=== PATIENT | male | born 1970 | race Caucasian/White ===

== ENCOUNTER 2016-11-28 03:05 | Inpatient (IN) | payer OTHER ==
[2016-11-28] VITALS (15 sets, daily range): BP systolic 86–128; BP diastolic 49–73
[~2016-11-28] VITALS: Ht 175.3 cm; Wt 66.9 kg
[~2016-11-28 03:05] MED LIST: LANTUS 10100 UNITS/ SC; LO-DOSE ASPIRIN81 M1 PO; NAPROSYN250 MG PO; NOVOLOG 10100 UNITS/ SC; PAXIL20 MG PO; XANAX1 MG PO
[2016-11-28 03:37] LABS: ADD MIUA? NO; BILIRUBIN NEGATIVE; BLOOD NEGATIVE; COLOR YELLOW ((YELLOW)); GLUCOSE (STRIP) >=1000; KETONES >=80; LEUKOCYTES NEGATIVE; NITRITE NEGATIVE; PROTEIN (STRIP) NEGATIVE; SPECIFIC GRAVITY 1.032 (1.000-1.030); UCUL ADDED? NO; UROBILINOGEN 0.2 MG/DL (0.2-1.0)
[2016-11-28 05:21] LABS: CARBON DIOXIDE (BICARBONATE) 16.4 MEQ/L (20-31)
[2016-11-28 05:23] LABS: CHLORIDE 97 mEq/L (99-109); POTASSIUM 4.8 mEq/L (3.7-5.4); SODIUM 133 mEq/L (136-147)
[2016-11-28 05:27] LABS: ANION GAP 24 MEQ/L (2-14)
[2016-11-28 05:28] LABS: TOTAL BILIRUBIN 0.4 mg/dL (0.0-1.0)
[2016-11-28 05:29] LABS: ALKALINE PHOSPHATASE 136 IU/L (3-129); GFR ESTIMATE (CALCULATED) > 59 mL/min/
[2016-11-28 05:30] LABS: UREA NITROGEN (BUN) 29 mg/dL (9-23)
[2016-11-28 05:33] LABS: LIPASE 22 U/L (1.0-51.0)
[2016-11-28 05:47] LABS: GLUCOSE 761 mg/dL (70-99)
[2016-11-28 05:49] LABS: HEMATOCRIT 38.6 % (38.0-50.0); MCH 31.3 PG (29.0-34.0); MCHC 33.2 G/DL (30.0-36.0); MCV 94.4 FL (86-99); MEAN PLAT.VOLUME 11.8 uM^3 (9.0-12.4); PLATELET COUNT 293 K/uL (156-360); RBC DIS.WIDTH-CV 14.5 % (11.8-14.6); RBC DIS.WIDTH-SD 47.6 % (39-53); RED BLOOD COUNT 4.09 M/uL (4.00-5.50); WHITE BLOOD COUNT 11.2 K/uL (4.1-10.2)
[2016-11-28 07:10] LABS: Estimated Average Glucose 243 mg/dL (70-123); HEMOGLOBIN A1c (GLYCOHEMOGLOB) 10.1 % HGB (Below 5.7)
[2016-11-28 08:38] LABS: POINT-OF-CARE METER ID UU13113731
[2016-11-28 09:00] LABS: METH RESISTANT S AUREUS PCR NEGATIVE (NEGATIVE)
[2016-11-28 09:03] LABS: PROBE CHECK PASS; SPECIMEN PROCESSING CONTROL PASS
[2016-11-28 09:18] LABS: POINT-OF-CARE METER ID UU13113731
[2016-11-28 09:57] LABS: ANION GAP 23 MEQ/L (2-14); CHLORIDE 104 MEQ/L (99-109); GFR ESTIMATE (CALCULATED) > 59 mL/min/; POTASSIUM 4.2 MEQ/L (3.7-5.4); SAMPLE HEMOLYSIS CHECK 0; SAMPLE ICTERIC CHECK 0; SAMPLE LIPEMIA CHECK 0; SODIUM 139 MEQ/L (136-147); UREA NITROGEN (BUN) 24 mg/dL (9-23)
[2016-11-28 10:05] LABS: GLUCOSE 354 mg/dL (70-99)
[2016-11-28 10:37] LABS: POINT-OF-CARE METER ID UU13113731
[2016-11-28 11:23] LABS: POINT-OF-CARE METER ID UU13113731
[2016-11-28 12:42] LABS: ANION GAP 14 MEQ/L (2-14); CHLORIDE 104 MEQ/L (99-109); POTASSIUM 4.3 MEQ/L (3.7-5.4); SAMPLE HEMOLYSIS CHECK 0; SAMPLE ICTERIC CHECK 0; SAMPLE LIPEMIA CHECK 1; SODIUM 136 MEQ/L (136-147)
[2016-11-28 12:47] LABS: GFR ESTIMATE (CALCULATED) > 59 mL/min/; GLUCOSE 249 mg/dL (70-99); UREA NITROGEN (BUN) 17 mg/dL (9-23)
[2016-11-28 12:53] LABS: POINT-OF-CARE METER ID UU13113731; POINT-OF-CARE USER ID 606021424
[2016-11-28 14:06] LABS: POINT-OF-CARE METER ID UU13113731; POINT-OF-CARE USER ID 606021424
[2016-11-28 14:45] LABS: POINT-OF-CARE METER ID UU13113731
[2016-11-28 15:57] LABS: POINT-OF-CARE METER ID UU13113731
[2016-11-28 16:14] LABS: ANION GAP 10 MEQ/L (2-14); CHLORIDE 107 MEQ/L (99-109); POTASSIUM 4.4 MEQ/L (3.7-5.4); SAMPLE HEMOLYSIS CHECK 2; SAMPLE ICTERIC CHECK 0; SAMPLE LIPEMIA CHECK 0; SODIUM 137 MEQ/L (136-147)
[2016-11-28 16:20] LABS: GFR ESTIMATE (CALCULATED) > 59 mL/min/; GLUCOSE 186 mg/dL (70-99); UREA NITROGEN (BUN) 12 mg/dL (9-23)
[2016-11-28 17:03] LABS: POINT-OF-CARE METER ID UU13113731
[2016-11-28 21:09] LABS: ANION GAP 8 MEQ/L (2-14); CHLORIDE 104 MEQ/L (99-109); GFR ESTIMATE (CALCULATED) > 59 mL/min/; GLUCOSE 333 mg/dL (70-99); POTASSIUM 4.6 MEQ/L (3.7-5.4); SAMPLE HEMOLYSIS CHECK 2; SAMPLE ICTERIC CHECK 0; SAMPLE LIPEMIA CHECK 0; SODIUM 134 MEQ/L (136-147); UREA NITROGEN (BUN) 14 mg/dL (9-23)
[2016-11-29] VITALS (10 sets, daily range): BP systolic 0–134; BP diastolic 0–69
[2016-11-29 00:43] LABS: POINT-OF-CARE METER ID UU13113731
[2016-11-29 03:03] LABS: POINT-OF-CARE METER ID UU13113731
[2016-11-29 05:17] LABS: HEMATOCRIT 35.6 % (38.0-50.0); MCH 31.3 PG (29.0-34.0); MCHC 33.1 G/DL (30.0-36.0); MCV 94.4 FL (86-99); MEAN PLAT.VOLUME 10.6 uM^3 (9.0-12.4); PLATELET COUNT 274 K/uL (156-360); RBC DIS.WIDTH-CV 14.4 % (11.8-14.6); RBC DIS.WIDTH-SD 49.3 % (39-53); RED BLOOD COUNT 3.77 M/uL (4.00-5.50); WHITE BLOOD COUNT 9.4 K/uL (4.1-10.2)
[2016-11-29 06:33] LABS: POINT-OF-CARE METER ID UU13113731
[2016-11-29 06:40] LABS: ALKALINE PHOSPHATASE 85 IU/L (3-129); ANION GAP 8 MEQ/L (2-14); CHLORIDE 108 MEQ/L (99-109); GFR ESTIMATE (CALCULATED) > 59 mL/min/; MAGNESIUM 1.8 mg/dl (1.3-2.7); POTASSIUM 3.8 MEQ/L (3.7-5.4); SAMPLE HEMOLYSIS CHECK 0; SAMPLE ICTERIC CHECK 0; SAMPLE LIPEMIA CHECK 0; TOTAL BILIRUBIN 0.3 MG/DL (0.0-1.0); UREA NITROGEN (BUN) 12 mg/dL (9-23)
[2016-11-29 06:43] LABS: GLUCOSE 79 mg/dL (70-99); SODIUM 142 MEQ/L (136-147)
[2016-11-29 06:46] LABS: EOSINOPHIL (%) 1.6 % (0-5); EOSINOPHIL COUNT 0.2 K/uL (0-0.3); IMMATURE GRANULOCYTE (%) 0.4 % (0.0-0.7); LYMPHOCYTE COUNT 2.9 K/uL (1.0-2.8); MONOCYTE (%) 5.6 % (3-12); MONOCYTE COUNT 0.5 K/uL (0-0.8); NEUTROPHIL (%) 61.2 % (45-76); NEUTROPHIL COUNT 5.7 K/uL (1.8-6.4)
[2016-11-29 08:11] LABS: POINT-OF-CARE METER ID UU13113731
[2016-11-29 09:05] LABS: POINT-OF-CARE METER ID UU13113731
[2016-11-29 15:27] LABS: POINT-OF-CARE METER ID UU13113731
[2016-11-29 17:18] LABS: POINT-OF-CARE METER ID UU13113731
[2016-11-29 20:27] LABS: POINT-OF-CARE METER ID UU13113748
[2016-11-29 22:32] LABS: POINT-OF-CARE METER ID UU13113748
[2016-11-30] VITALS: BP 138/68
[2016-11-30 04:00] VITALS: BP 135/60
[2016-11-30 05:50] LABS: POINT-OF-CARE METER ID UU14162636
[2016-11-30 06:08] LABS: EOSINOPHIL (%) 1.3 % (0-5); EOSINOPHIL COUNT 0.1 K/uL (0-0.3); HEMATOCRIT 39.8 % (38.0-50.0); IMMATURE GRANULOCYTE (%) 0.3 % (0.0-0.7); LYMPHOCYTE COUNT 2.3 K/uL (1.0-2.8); MCHC 32.9 G/DL (30.0-36.0); MCV 94.1 FL (86-99); MEAN PLAT.VOLUME 11.4 uM^3 (9.0-12.4); MONOCYTE (%) 8.5 % (3-12); MONOCYTE COUNT 0.6 K/uL (0-0.8); NEUTROPHIL (%) 58.8 % (45-76); NEUTROPHIL COUNT 4.4 K/uL (1.8-6.4); PLATELET COUNT 307 K/uL (156-360); RBC DIS.WIDTH-CV 14.3 % (11.8-14.6); RED BLOOD COUNT 4.23 M/uL (4.00-5.50); WHITE BLOOD COUNT 7.5 K/uL (4.1-10.2)
[2016-11-30 06:47] LABS: ALKALINE PHOSPHATASE 100 IU/L (3-129); ANION GAP 8 MEQ/L (2-14); CHLORIDE 100 MEQ/L (99-109); GFR ESTIMATE (CALCULATED) > 59 mL/min/; SAMPLE HEMOLYSIS CHECK 0; SAMPLE ICTERIC CHECK 0; SAMPLE LIPEMIA CHECK 0; SODIUM 136 MEQ/L (136-147); UREA NITROGEN (BUN) 19 mg/dL (9-23)
[2016-11-30 06:51] LABS: GLUCOSE 392 mg/dL (70-99); POTASSIUM 4.7 MEQ/L (3.7-5.4); TOTAL BILIRUBIN 0.4 MG/DL (0.0-1.0)
[2016-11-30 08:00] VITALS: BP 111/56
[2016-11-30 09:11] LABS: POINT-OF-CARE METER ID UU13113731
[2016-11-30 12:46] LABS: POINT-OF-CARE METER ID UU13113731
[2016-11-30 13:18] VITALS: BP 150/70
[2016-11-30 17:01] LABS: POINT-OF-CARE METER ID UU14149396
[2016-11-30 17:19] VITALS: BP 124/74
[2016-11-30 17:24] LABS: POINT-OF-CARE METER ID UU14149396
[2016-11-30 19:45] VITALS: BP 125/64
[2016-11-30 20:12] LABS: POINT-OF-CARE METER ID UU14149396
[2016-11-30 22:14] LABS: POINT-OF-CARE METER ID UU14149396
[2016-12-01] VITALS: BP 118/57
[2016-12-01 04:20] VITALS: BP 120/62
[2016-12-01 06:15] LABS: HEMATOCRIT 38.6 % (38.0-50.0); MCH 31.2 PG (29.0-34.0); MCHC 33.4 G/DL (30.0-36.0); MCV 93.5 FL (86-99); MEAN PLAT.VOLUME 10.8 uM^3 (9.0-12.4); PLATELET COUNT 275 K/uL (156-360); RBC DIS.WIDTH-CV 14.4 % (11.8-14.6); RBC DIS.WIDTH-SD 48.9 % (39-53); RED BLOOD COUNT 4.13 M/uL (4.00-5.50); WHITE BLOOD COUNT 9.7 K/uL (4.1-10.2)
[2016-12-01 06:33] LABS: EOSINOPHIL (%) 1.7 % (0-5); EOSINOPHIL COUNT 0.2 K/uL (0-0.3); IMMATURE GRANULOCYTE (%) 0.4 % (0.0-0.7); LYMPHOCYTE COUNT 2.6 K/uL (1.0-2.8); MONOCYTE (%) 8.8 % (3-12); MONOCYTE COUNT 0.9 K/uL (0-0.8); NEUTROPHIL (%) 62.3 % (45-76); NEUTROPHIL COUNT 6.1 K/uL (1.8-6.4)
[2016-12-01 07:18] LABS: ALKALINE PHOSPHATASE 88 IU/L (3-129); ANION GAP 6 MEQ/L (2-14); CHLORIDE 105 MEQ/L (99-109); GFR ESTIMATE (CALCULATED) > 59 mL/min/; MAGNESIUM 1.9 mg/dl (1.3-2.7); SAMPLE HEMOLYSIS CHECK 0; SAMPLE ICTERIC CHECK 0; SAMPLE LIPEMIA CHECK 0; SODIUM 141 MEQ/L (136-147); UREA NITROGEN (BUN) 17 mg/dL (9-23)
[2016-12-01 07:22] LABS: GLUCOSE 92 mg/dL (70-99); TOTAL BILIRUBIN 0.3 MG/DL (0.0-1.0)
[2016-12-01 08:16] LABS: POINT-OF-CARE METER ID UU14149398
[2016-12-01 08:30] VITALS: BP 134/73
[2016-12-01 09:37] LABS: POINT-OF-CARE METER ID UU14149398
[2016-12-01 10:02] LABS: POINT-OF-CARE METER ID UU13113731
[2016-12-01 10:36] LABS: POINT-OF-CARE METER ID UU13113731
[2016-12-01 11:41] LABS: POINT-OF-CARE METER ID UU14149398
[2016-12-01 12:04] VITALS: BP 123/59
[2016-12-01 14:45] LABS: POINT-OF-CARE METER ID UU14149398
[2016-12-01 15:51] LABS: POINT-OF-CARE METER ID UU14149398
[2016-12-01 16:09] VITALS: BP 139/72
[2016-12-01 21:41] LABS: POINT-OF-CARE METER ID UU14149396
[2016-12-01 22:09] LABS: POINT-OF-CARE METER ID UU14149396
[2016-12-01 22:51] LABS: POINT-OF-CARE METER ID UU14149396; POINT-OF-CARE USER ID STWHLR41
[2016-12-02] VITALS: BP 117/57
[2016-12-02 03:48] LABS: POINT-OF-CARE METER ID UU14149398
[2016-12-02 07:45] VITALS: BP 135/73
[2016-12-02 07:49] LABS: POINT-OF-CARE METER ID UU14149398
[2016-12-02 09:00] LABS: HEMATOCRIT 38.5 % (38.0-50.0); MCH 31.6 PG (29.0-34.0); MCHC 33.5 G/DL (30.0-36.0); MCV 94.4 FL (86-99); MEAN PLAT.VOLUME 11.2 uM^3 (9.0-12.4); PLATELET COUNT 280 K/uL (156-360); RBC DIS.WIDTH-CV 14.6 % (11.8-14.6); RBC DIS.WIDTH-SD 50.1 % (39-53); RED BLOOD COUNT 4.08 M/uL (4.00-5.50); WHITE BLOOD COUNT 7.4 K/uL (4.1-10.2)
[2016-12-02 09:04] LABS: EOSINOPHIL (%) 1.4 % (0-5); EOSINOPHIL COUNT 0.1 K/uL (0-0.3); IMMATURE GRANULOCYTE (%) 0.7 % (0.0-0.7); IMMATURE GRANULOCYTE COUNT 0.1 K/uL; LYMPHOCYTE COUNT 1.5 K/uL (1.0-2.8); MONOCYTE (%) 7.3 % (3-12); MONOCYTE COUNT 0.5 K/uL (0-0.8); NEUTROPHIL (%) 69.6 % (45-76); NEUTROPHIL COUNT 5.1 K/uL (1.8-6.4)
[2016-12-02 09:36] LABS: ALKALINE PHOSPHATASE 99 IU/L (3-129); ANION GAP 9 MEQ/L (2-14); CHLORIDE 98 MEQ/L (99-109); GFR ESTIMATE (CALCULATED) > 59 mL/min/; MAGNESIUM 1.9 mg/dl (1.3-2.7); SAMPLE HEMOLYSIS CHECK 0; SAMPLE ICTERIC CHECK 0; SAMPLE LIPEMIA CHECK 0; TOTAL BILIRUBIN 0.3 MG/DL (0.0-1.0); UREA NITROGEN (BUN) 19 mg/dL (9-23)
[2016-12-02 09:40] LABS: POTASSIUM 4.9 MEQ/L (3.7-5.4); SODIUM 131 MEQ/L (136-147)
[2016-12-02 09:41] LABS: GLUCOSE 475 mg/dL (70-99)
[2016-12-02 11:58] LABS: POINT-OF-CARE METER ID UU14149398
[2016-12-02 15:36] VITALS: BP 152/77
[2016-12-02 15:58] LABS: POINT-OF-CARE METER ID UU14149396
[2016-12-02 16:25] LABS: POINT-OF-CARE METER ID UU14149396
[2016-12-02 21:48] LABS: POINT-OF-CARE METER ID UU14149398
[2016-12-03 00:13] VITALS: BP 133/70
[2016-12-03 07:37] LABS: ALKALINE PHOSPHATASE 114 IU/L (3-129); ANION GAP 10 MEQ/L (2-14); CHLORIDE 100 MEQ/L (99-109); GFR ESTIMATE (CALCULATED) > 59 mL/min/; POTASSIUM 4.6 MEQ/L (3.7-5.4); SAMPLE HEMOLYSIS CHECK 0; SAMPLE ICTERIC CHECK 0; SAMPLE LIPEMIA CHECK 0; TOTAL BILIRUBIN 0.3 MG/DL (0.0-1.0); UREA NITROGEN (BUN) 18 mg/dL (9-23)
[2016-12-03 07:38] LABS: GLUCOSE 179 mg/dL (70-99); MAGNESIUM 2.2 mg/dl (1.3-2.7); SODIUM 138 MEQ/L (136-147)
[2016-12-03 07:43] LABS: EOSINOPHIL (%) 2.1 % (0-5); EOSINOPHIL COUNT 0.2 K/uL (0-0.3); HEMATOCRIT 44.1 % (38.0-50.0); IMMATURE GRANULOCYTE (%) 0.7 % (0.0-0.7); IMMATURE GRANULOCYTE COUNT 0.1 K/uL; LYMPHOCYTE COUNT 3.1 K/uL (1.0-2.8); MCHC 33.8 G/DL (30.0-36.0); MCV 94.6 FL (86-99); MEAN PLAT.VOLUME 11.1 uM^3 (9.0-12.4); MONOCYTE (%) 7.4 % (3-12); MONOCYTE COUNT 0.7 K/uL (0-0.8); NEUTROPHIL (%) 55.1 % (45-76); PLATELET COUNT 346 K/uL (156-360); RBC DIS.WIDTH-CV 14.9 % (11.8-14.6); RBC DIS.WIDTH-SD 51.4 % (39-53); RED BLOOD COUNT 4.66 M/uL (4.00-5.50); WHITE BLOOD COUNT 9.1 K/uL (4.1-10.2)
[2016-12-03 08:24] LABS: POINT-OF-CARE METER ID UU14149396
[2016-12-03 08:40] LABS: LIPASE 36 U/L (1.0-51.0)
[2016-12-03 10:39] LABS: HBSG INDEX 0.17
[2016-12-03 10:40] LABS: HPCA INDEX 0.23
[2016-12-03 10:41] LABS: ANTI-HEPATITIS A VIRUS (IGM) Nonreactive; HAV INDEX 0.13
[2016-12-03 10:42] LABS: ANTI-HEPATITIS B CORE (IGM) Nonreactive; HBC IgM INDEX 0.06
[2016-12-03 12:08] LABS: POINT-OF-CARE METER ID UU13113807
[2016-12-03 16:30] VITALS: BP 138/74
[2016-12-03 17:58] LABS: POINT-OF-CARE METER ID UU13113807
[2016-12-03 21:00] VITALS: BP 132/78
== END 2016-12-03 21:40 | disposition left against medical advice (07) | DRG 638 ==
LOC: EME → EDBD 03:05 → 4SOUTH 06:17 → 4WEST 06:17 → EDOF 06:17 → 4WEST 07:15 → 4SOUTH 11-30 13:01
PROVIDERS: Emergency Medicine; Hospitalist; Internal Medicine; Internal Medicine Nephrology; Physician Assistant; Physician Assistant Medical
DX: E10.10 Type 1 diabetes mellitus with ketoacidosis without coma (principal); N17.9 Acute kidney failure, unspecified; F11.10 Opioid abuse, uncomplicated; G47.33 Obstructive sleep apnea (adult) (pediatric); T38.3X6A Underdosing of insulin and oral hypoglycemic [antidiabetic] drugs, initial encounter; Z91.128 Patient's intentional underdosing of medication regimen for other reason; Z91.11 Patient's noncompliance with dietary regimen; R74.0 Nonspecific elevation of levels of transaminase and lactic acid dehydrogenase [LDH]; E86.0 Dehydration; R51 Headache; R10.13 Epigastric pain; F41.9 Anxiety disorder, unspecified; F32.9 Major depressive disorder, single episode, unspecified; Z79.4 Long term (current) use of insulin; Z79.82 Long term (current) use of aspirin; F17.200 Nicotine dependence, unspecified, uncomplicated
CPT/HCPCS: 71010; 74000; 76705; 80048; 80048 91; 80053; 80074; 81003; 82009; 82803; 82948; 83036; 83690; 83735; 84100; 85025; 85027; 87641; 99281; 99285; J1650; J1815; J2405; J7030; J7050; J7120; S0028

== ENCOUNTER 2017-03-15 10:10 | Inpatient (IN) | payer OTHER ==
[~2017-03-15] VITALS: Ht 175.3 cm; Wt 59.3 kg
[2017-03-15] VITALS (10 sets, daily range): BP systolic 89–136; BP diastolic 57–72
[2017-03-15 10:34] LABS: HEMATOCRIT 45.3 % (38.0-50.0); MCH 31.4 PG (29.0-34.0); MCHC 30.7 G/DL (30.0-36.0); MCV 102.3 FL (86-99); MEAN PLAT.VOLUME 11.5 uM^3 (9.0-12.4); PLATELET COUNT 271 K/uL (156-360); RBC DIS.WIDTH-CV 12.9 % (11.8-14.6); RED BLOOD COUNT 4.43 M/uL (4.00-5.50); WHITE BLOOD COUNT 10.1 K/uL (4.1-10.2)
[2017-03-15 10:36] LABS: CARBON DIOXIDE (BICARBONATE) 17.6 MEQ/L (20-31)
[2017-03-15 10:42] LABS: CHLORIDE 88 mEq/L (99-109); SODIUM 126 mEq/L (136-147)
[2017-03-15 10:45] LABS: ANION GAP 24 MEQ/L (2-14)
[2017-03-15 10:46] LABS: TOTAL BILIRUBIN 0.3 mg/dL (0.0-1.0)
[2017-03-15 10:48] LABS: ALKALINE PHOSPHATASE 68 IU/L (3-129); GFR ESTIMATE (CALCULATED) 39 mL/min/
[2017-03-15 10:49] LABS: UREA NITROGEN (BUN) 34 mg/dL (9-23)
[2017-03-15 10:51] LABS: LIPASE 23 U/L (1.0-51.0)
[2017-03-15 10:55] LABS: POTASSIUM 7.1 mEq/L (3.7-5.4)
[2017-03-15 11:06] LABS: GLUCOSE 1311 mg/dL (70-99)
[2017-03-15 12:01] LABS: ADD MIUA? NO; BILIRUBIN NEGATIVE; BLOOD NEGATIVE; COLOR STRAW ((YELLOW)); GLUCOSE (STRIP) >=500; KETONES 20; LEUKOCYTES NEGATIVE; NITRITE NEGATIVE; PROTEIN (STRIP) NEGATIVE; SPECIFIC GRAVITY 1.024 (1.000-1.030); UCUL ADDED? NO; UROBILINOGEN 0.2 MG/DL (0.2-1.0)
[2017-03-15 12:04] LABS: CHLORIDE 88 mEq/L (99-109); SODIUM 125 mEq/L (136-147)
[2017-03-15 12:08] LABS: ANION GAP 24 MEQ/L (2-14)
[2017-03-15 12:10] LABS: GFR ESTIMATE (CALCULATED) 36 mL/min/
[2017-03-15 12:11] LABS: UREA NITROGEN (BUN) 34 mg/dL (9-23)
[2017-03-15 12:18] LABS: GLUCOSE 1254 mg/dL (70-99); POTASSIUM 6.5 mEq/L (3.7-5.4)
[2017-03-15 12:50] LABS: Estimated Average Glucose 286 mg/dL (70-123); HEMOGLOBIN A1c (GLYCOHEMOGLOB) 11.6 % HGB (Below 5.7)
[2017-03-15 15:13] LABS: GLUCOSE 607 mg/dL (70-99)
[2017-03-15 15:46] LABS: METH RESISTANT S AUREUS PCR NEGATIVE (NEGATIVE)
[2017-03-15 15:48] LABS: PROBE CHECK PASS; SPECIMEN PROCESSING CONTROL PASS
[2017-03-15 16:04] LABS: POINT-OF-CARE METER ID UU13113803
[2017-03-15 16:19] LABS: ANION GAP 11 MEQ/L (2-14); CHLORIDE 101 MEQ/L (99-109); SAMPLE HEMOLYSIS CHECK 0; SAMPLE ICTERIC CHECK 0; SAMPLE LIPEMIA CHECK 0
[2017-03-15 16:21] LABS: POTASSIUM 4.1 MEQ/L (3.7-5.4); SODIUM 137 MEQ/L (136-147)
[2017-03-15 16:25] LABS: GLUCOSE 361 mg/dL (70-99); UREA NITROGEN (BUN) 22 mg/dL (9-23)
[2017-03-15 16:26] LABS: GFR ESTIMATE (CALCULATED) > 59 mL/min/
[2017-03-15 16:55] LABS: POINT-OF-CARE METER ID UU13113803
[2017-03-15 18:24] LABS: POINT-OF-CARE METER ID UU13113803
[2017-03-15 19:23] LABS: POINT-OF-CARE METER ID UU13113803
[2017-03-15 19:52] LABS: POINT-OF-CARE METER ID UU13113803
[2017-03-15 20:48] LABS: POINT-OF-CARE METER ID UU13113803
[2017-03-15 21:09] LABS: ANION GAP 9 MEQ/L (2-14); CHLORIDE 104 MEQ/L (99-109); GFR ESTIMATE (CALCULATED) > 59 mL/min/; POTASSIUM 3.6 MEQ/L (3.7-5.4); SAMPLE HEMOLYSIS CHECK 0; SAMPLE ICTERIC CHECK 0; SAMPLE LIPEMIA CHECK 0; SODIUM 139 MEQ/L (136-147); UREA NITROGEN (BUN) 17 mg/dL (9-23)
[2017-03-15 21:15] LABS: GLUCOSE 149 mg/dL (70-99)
[2017-03-15 21:46] LABS: POINT-OF-CARE METER ID UU13113803
[2017-03-15 22:54] LABS: POINT-OF-CARE METER ID UU13113803
[2017-03-15 23:44] LABS: POINT-OF-CARE METER ID UU13113803
[2017-03-16] VITALS (14 sets, daily range): BP systolic 102–133; BP diastolic 49–72
[2017-03-16 00:51] LABS: POINT-OF-CARE METER ID UU13113803
[2017-03-16 01:15] LABS: POTASSIUM 3.2 mEq/L (3.7-5.4); SODIUM 141 mEq/L (136-147)
[2017-03-16 01:16] LABS: CHLORIDE 105 mEq/L (99-109); GLUCOSE 170 mg/dL (70-99)
[2017-03-16 01:18] LABS: ANION GAP 8 MEQ/L (2-14)
[2017-03-16 01:20] LABS: GFR ESTIMATE (CALCULATED) > 59 mL/min/
[2017-03-16 01:21] LABS: UREA NITROGEN (BUN) 14 mg/dL (9-23)
[2017-03-16 03:04] LABS: POINT-OF-CARE METER ID UU13113803
[2017-03-16 06:31] LABS: POINT-OF-CARE METER ID UU14174217
[2017-03-16 07:20] LABS: ANION GAP 6 MEQ/L (2-14); CHLORIDE 105 MEQ/L (99-109); GFR ESTIMATE (CALCULATED) > 59 mL/min/; SODIUM 142 MEQ/L (136-147); UREA NITROGEN (BUN) 13 mg/dL (9-23)
[2017-03-16 07:21] LABS: GLUCOSE 70 mg/dL (70-99); POTASSIUM 4.1 MEQ/L (3.7-5.4)
[2017-03-17] VITALS (8 sets, daily range): BP systolic 98–128; BP diastolic 49–79
[2017-03-17 02:55] LABS: POINT-OF-CARE METER ID UU13113731
[2017-03-17 05:37] LABS: ANION GAP 7 MEQ/L (2-14); CHLORIDE 99 MEQ/L (99-109); GFR ESTIMATE (CALCULATED) > 59 mL/min/; GLUCOSE 60 mg/dL (70-99); POTASSIUM 3.5 MEQ/L (3.7-5.4); SAMPLE HEMOLYSIS CHECK 0; SAMPLE ICTERIC CHECK 0; SAMPLE LIPEMIA CHECK 0; SODIUM 137 MEQ/L (136-147); UREA NITROGEN (BUN) 20 mg/dL (9-23)
[2017-03-17 06:31] LABS: POINT-OF-CARE METER ID UU13113731
[2017-03-17 22:37] LABS: POINT-OF-CARE METER ID UU13113803
[2017-03-18] VITALS: BP 97/54
[2017-03-18 02:40] LABS: POINT-OF-CARE METER ID UU13113803
[2017-03-18 04:00] VITALS: BP 106/79
[2017-03-18 06:19] LABS: ANION GAP 7 MEQ/L (2-14); CHLORIDE 96 MEQ/L (99-109); GFR ESTIMATE (CALCULATED) > 59 mL/min/; SAMPLE HEMOLYSIS CHECK 0; SAMPLE ICTERIC CHECK 0; SAMPLE LIPEMIA CHECK 0; UREA NITROGEN (BUN) 19 mg/dL (9-23)
[2017-03-18 06:20] LABS: GLUCOSE 350 mg/dL (70-99); POTASSIUM 4.8 MEQ/L (3.7-5.4); SODIUM 130 MEQ/L (136-147)
[2017-03-18 06:33] LABS: POINT-OF-CARE METER ID UU13113803
[2017-03-18 08:00] VITALS: BP 127/57
[2017-03-18 09:39] LABS: POINT-OF-CARE METER ID UU14174217
[2017-03-18 11:00] LABS: POINT-OF-CARE METER ID UU14174217
[2017-03-18 12:00] VITALS: BP 119/67
[2017-03-18 12:52] LABS: POINT-OF-CARE METER ID UU13113731
[2017-03-18 14:40] LABS: POINT-OF-CARE METER ID UU14174217
[2017-03-18 16:00] VITALS: BP 121/66
[2017-03-18 18:43] LABS: POINT-OF-CARE METER ID UU14174217
[2017-03-18 20:00] VITALS: BP 129/69
[2017-03-18 22:30] LABS: POINT-OF-CARE METER ID UU14162636
[2017-03-19] VITALS: BP 110/59
[2017-03-19 02:41] LABS: POINT-OF-CARE METER ID UU13113803
[2017-03-19 04:00] VITALS: BP 109/54
[2017-03-19 05:49] LABS: POINT-OF-CARE METER ID UU14162636
[2017-03-19 06:27] LABS: POINT-OF-CARE METER ID UU13113803
[2017-03-19 07:33] LABS: HEMATOCRIT 45.5 % (38.0-50.0); MCH 30.8 PG (29.0-34.0); MCHC 32.3 G/DL (30.0-36.0); MEAN PLAT.VOLUME 11.2 uM^3 (9.0-12.4); PLATELET COUNT 328 K/uL (156-360); RBC DIS.WIDTH-CV 12.5 % (11.8-14.6); RBC DIS.WIDTH-SD 43.8 % (39-53); RED BLOOD COUNT 4.78 M/uL (4.00-5.50); WHITE BLOOD COUNT 8.1 K/uL (4.1-10.2)
[2017-03-19 07:35] LABS: MCV 95.2 FL (86-99)
[2017-03-19 08:00] VITALS: BP 108/52
[2017-03-19 08:13] LABS: ANION GAP 6 MEQ/L (2-14); CHLORIDE 102 MEQ/L (99-109); GFR ESTIMATE (CALCULATED) > 59 mL/min/; POTASSIUM 4.3 MEQ/L (3.7-5.4); SAMPLE HEMOLYSIS CHECK 0; SAMPLE ICTERIC CHECK 0; SAMPLE LIPEMIA CHECK 0; UREA NITROGEN (BUN) 17 mg/dL (9-23)
[2017-03-19 08:40] LABS: GLUCOSE 47 mg/dL (70-99); SODIUM 140 MEQ/L (136-147)
[2017-03-19 10:52] LABS: POINT-OF-CARE METER ID UU13113803
[2017-03-19] MEDS ORDERED: LEVEMIR100 UNIT/2 SC ×2 (11:23)
[2017-03-19] MEDS ORDERED: NOVOLOG 10100 UNITS/ SC (11:23)
[2017-03-19 12:12] LABS: POINT-OF-CARE METER ID UU13113803
[2017-03-19 13:03] LABS: POINT-OF-CARE METER ID UU13113803
== END 2017-03-19 13:00 | disposition home or self-care (01) | DRG 637 ==
LOC: EME → EDBD 10:10 → 4WEST 12:09 → EDOF 12:09 → 4WEST 13:25
PROVIDERS: Emergency Medicine; Hospitalist; Internal Medicine; Internal Medicine Pulmonary Disease; Student in an Organized Health Care Education/Training Program
DX: E13.10 Other specified diabetes mellitus with ketoacidosis without coma (principal); A41.9 Sepsis, unspecified organism; N39.0 Urinary tract infection, site not specified; F11.20 Opioid dependence, uncomplicated; T38.3X6A Underdosing of insulin and oral hypoglycemic [antidiabetic] drugs, initial encounter; N17.9 Acute kidney failure, unspecified; E87.5 Hyperkalemia; E86.0 Dehydration; F17.210 Nicotine dependence, cigarettes, uncomplicated; Z79.4 Long term (current) use of insulin; Z91.128 Patient's intentional underdosing of medication regimen for other reason; Z79.82 Long term (current) use of aspirin; E87.8 Other disorders of electrolyte and fluid balance, not elsewhere classified
CPT/HCPCS: 80048; 80048 91; 80053; 81003; 82010; 82803; 82948; 83036; 83690; 84100; 84999; 85027; 87641; 93005; 94644; 99281; 99285; J0610; J1644; J1815; J7050; J7120

== ENCOUNTER 2017-04-06 13:53 | Inpatient (IN) | payer OTHER ==
[~2017-04-06] VITALS: Ht 175.3 cm; Wt 59.2 kg
[2017-04-06] VITALS (7 sets, daily range): BP systolic 93–127; BP diastolic 37–70
[~2017-04-06 13:53] MED LIST changes: +LEVEMIR100 UNIT/2 SC
[2017-04-06 14:33] LABS: HEMATOCRIT 46.9 % (38.0-50.0); MCH 30.8 PG (29.0-34.0); MCHC 29.9 G/DL (30.0-36.0); MCV 103.1 FL (86-99); MEAN PLAT.VOLUME 11.4 uM^3 (9.0-12.4); PLATELET COUNT 445 K/uL (156-360); RBC DIS.WIDTH-CV 12.8 % (11.8-14.6); RBC DIS.WIDTH-SD 48.8 % (39-53); RED BLOOD COUNT 4.55 M/uL (4.00-5.50); WHITE BLOOD COUNT 18.6 K/uL (4.1-10.2)
[2017-04-06 14:35] LABS: CARBOXY HGB 1.7 % (0-5); METHEMOGLOBIN 0.8 % (0-1.5); PCO2 < 20 mm Hg (35-45)
[2017-04-06 14:36] LABS: PO2 69 mm Hg (80-100); pH 6.92 (7.35-7.45)
[2017-04-06 14:37] LABS: COMMENTS - BLOOD GASES NEG A+C+; DEVICE ROOM AIR; FI02 21 %; SITE LR; TOTAL RESP RATE 36 resp/min
[2017-04-06 14:40] LABS: CHLORIDE 90 mEq/L (99-109); SODIUM 132 mEq/L (136-147)
[2017-04-06 14:44] LABS: ANION GAP 39 MEQ/L (2-14)
[2017-04-06 14:45] LABS: TOTAL BILIRUBIN 0.3 mg/dL (0.0-1.0)
[2017-04-06 14:46] LABS: ALKALINE PHOSPHATASE 87 IU/L (3-129)
[2017-04-06 14:47] LABS: GFR ESTIMATE (CALCULATED) 26 mL/min/
[2017-04-06 14:48] LABS: UREA NITROGEN (BUN) 41 mg/dL (9-23)
[2017-04-06 14:50] LABS: LIPASE 14 U/L (1.0-51.0)
[2017-04-06 14:52] LABS: GLUCOSE 791 mg/dL (70-99)
[2017-04-06 14:53] LABS: POTASSIUM 7.2 mEq/L (3.7-5.4)
[2017-04-06] MEDS ORDERED: LEVEMIR100 UNIT/2 SC ×2 (15:55→15:56)
[2017-04-06 16:41] LABS: GLUCOSE 723 mg/dL (70-99)
[2017-04-06 18:25] LABS: CARBOXY HGB 1.6 % (0-5); METHEMOGLOBIN 2.2 % (0-1.5); PCO2 < 19 mm Hg (35-45)
[2017-04-06 18:26] LABS: COMMENTS - BLOOD GASES A+C+; DEVICE RA; PO2 103 mm Hg (80-100); SITE RR
[2017-04-06 18:46] LABS: ANION GAP 28 MEQ/L (2-14); CHLORIDE 102 MEQ/L (99-109); SAMPLE HEMOLYSIS CHECK 1; SAMPLE ICTERIC CHECK 0; SAMPLE LIPEMIA CHECK 0; SODIUM 136 MEQ/L (136-147); UREA NITROGEN (BUN) 38 mg/dL (9-23)
[2017-04-06 18:48] LABS: GFR ESTIMATE (CALCULATED) 44 mL/min/; GLUCOSE 450 mg/dL (70-99); POTASSIUM 5.4 MEQ/L (3.7-5.4)
[2017-04-06 18:50] LABS: SAMPLE HEMOLYSIS CHECK 1; SAMPLE ICTERIC CHECK 0; SAMPLE LIPEMIA CHECK 0; SERUM ETHYL ALCOHOL < 10 mg/dL
[2017-04-06 19:06] LABS: METH RESISTANT S AUREUS PCR NEGATIVE (NEGATIVE)
[2017-04-06 19:07] LABS: PROBE CHECK PASS; SPECIMEN PROCESSING CONTROL PASS
[2017-04-06 19:18] LABS: Estimated Average Glucose 315 mg/dL (70-123); HEMOGLOBIN A1c (GLYCOHEMOGLOB) 12.6 % HGB (Below 5.7)
[2017-04-06 23:04] LABS: POINT-OF-CARE METER ID UU14174217
[2017-04-07] VITALS (16 sets, daily range): BP systolic 87–116; BP diastolic 36–71
[2017-04-07 00:19] LABS: POINT-OF-CARE METER ID UU14174217
[2017-04-07 01:19] LABS: SODIUM 140 mEq/L (136-147)
[2017-04-07 01:21] LABS: CHLORIDE 113 mEq/L (99-109); GLUCOSE 160 mg/dL (70-99); POTASSIUM 3.6 mEq/L (3.7-5.4)
[2017-04-07 01:22] LABS: ANION GAP 10 MEQ/L (2-14)
[2017-04-07 01:26] LABS: UREA NITROGEN (BUN) 27 mg/dL (9-23)
[2017-04-07 01:29] LABS: GFR ESTIMATE (CALCULATED) > 59 mL/min/
[2017-04-07 02:02] LABS: POINT-OF-CARE METER ID UU13113803
[2017-04-07 03:48] LABS: POINT-OF-CARE METER ID UU13113803
[2017-04-07 05:06] LABS: EOSINOPHIL (%) 0.3 % (0-5); EOSINOPHIL COUNT 0.1 K/uL (0-0.3); IMMATURE GRANULOCYTE (%) 1.4 % (0.0-0.7); IMMATURE GRANULOCYTE COUNT 0.2 K/uL; INSTRUMENT ABS NEUTROPHIL CT 11.5 K/uL; LYMPHOCYTE COUNT 2.8 K/uL (1.0-2.8); MONOCYTE (%) 8.4 % (3-12); MONOCYTE COUNT 1.3 K/uL (0-0.8); NEUTROPHIL (%) 72.1 % (45-76); NEUTROPHIL COUNT 11.5 K/uL (1.8-6.4)
[2017-04-07 05:10] LABS: CHLORIDE 111 mEq/L (99-109); POTASSIUM 3.4 mEq/L (3.7-5.4); SODIUM 140 mEq/L (136-147)
[2017-04-07 05:11] LABS: MAGNESIUM 1.8 mg/dL (1.3-2.7)
[2017-04-07 05:12] LABS: GLUCOSE 122 mg/dL (70-99)
[2017-04-07 05:13] LABS: ANION GAP 10 MEQ/L (2-14)
[2017-04-07 05:16] LABS: GFR ESTIMATE (CALCULATED) > 59 mL/min/
[2017-04-07 05:17] LABS: UREA NITROGEN (BUN) 25 mg/dL (9-23)
[2017-04-07 06:51] LABS: HEMATOCRIT 33.1 % (38.0-50.0); MCH 30.5 PG (29.0-34.0); MCHC 33.5 G/DL (30.0-36.0); MEAN PLAT.VOLUME 10.3 uM^3 (9.0-12.4); PLAT.SUFFICIENCY ADEQUATE; RBC DIS.WIDTH-CV 12.3 % (11.8-14.6); RBC DIS.WIDTH-SD 41.1 % (39-53); RED BLOOD COUNT 3.64 M/uL (4.00-5.50); WHITE BLOOD COUNT 15.9 K/uL (4.1-10.2)
[2017-04-07 07:33] LABS: MCV 90.9 FL (86-99); PLATELET COUNT 311 K/uL (156-360)
[2017-04-07 09:07] LABS: ANION GAP 9 MEQ/L (2-14); CHLORIDE 108 MEQ/L (99-109); GFR ESTIMATE (CALCULATED) > 59 mL/min/; GLUCOSE 114 mg/dL (70-99); POTASSIUM 3.4 MEQ/L (3.7-5.4); SAMPLE HEMOLYSIS CHECK 0; SAMPLE ICTERIC CHECK 0; SAMPLE LIPEMIA CHECK 0; SODIUM 138 MEQ/L (136-147); UREA NITROGEN (BUN) 24 mg/dL (9-23)
[2017-04-07 09:44] LABS: POINT-OF-CARE METER ID UU14174217
[2017-04-07 09:44] LABS: POINT-OF-CARE METER ID UU13113702
[2017-04-07 13:01] LABS: ANION GAP 9 MEQ/L (2-14); CHLORIDE 104 MEQ/L (99-109); GFR ESTIMATE (CALCULATED) > 59 mL/min/; SAMPLE HEMOLYSIS CHECK 0; SAMPLE ICTERIC CHECK 0; SAMPLE LIPEMIA CHECK 0; SODIUM 135 MEQ/L (136-147); UREA NITROGEN (BUN) 22 mg/dL (9-23)
[2017-04-07 13:03] LABS: GLUCOSE 196 mg/dL (70-99)
[2017-04-07 15:06] LABS: ADD MIUA? NO; BILIRUBIN NEGATIVE; BLOOD NEGATIVE; COLOR YELLOW ((YELLOW)); GLUCOSE (STRIP) >=500; KETONES 20; LEUKOCYTES NEGATIVE; NITRITE NEGATIVE; PROTEIN (STRIP) NEGATIVE; UCUL ADDED? NO; UROBILINOGEN 0.2 MG/DL (0.2-1.0)
[2017-04-07 15:48] LABS: AMPHETAMINES QUANT VALUE 0 NG/ML; BARBITUATES QUANT VALUE 0 NG/ML; BENZODIAZEPINES, URINE SCREEN POSITIVE (200 ng/mL); MARIJUANA QUANT VALUE 0 NG/ML; OPIATES QUANTITATIVE VALUE 0 NG/ML; PHENCYCLIDINE QUANT VALUE 0 NG/ML; UR CREATININE CONCENTRATION 85.5 MG/DL
[2017-04-07 16:19] LABS: ANION GAP 6 MEQ/L (2-14); CHLORIDE 105 MEQ/L (99-109); GFR ESTIMATE (CALCULATED) > 59 mL/min/; GLUCOSE 208 mg/dL (70-99); POTASSIUM 4.1 MEQ/L (3.7-5.4); SAMPLE HEMOLYSIS CHECK 0; SAMPLE ICTERIC CHECK 0; SAMPLE LIPEMIA CHECK 1; SODIUM 134 MEQ/L (136-147); UREA NITROGEN (BUN) 21 mg/dL (9-23)
[2017-04-07 22:12] LABS: POINT-OF-CARE METER ID UU13113725
[2017-04-08 04:14] LABS: POINT-OF-CARE METER ID UU13113725
[2017-04-08 07:13] VITALS: BP 129/75
[2017-04-08 07:38] LABS: ANION GAP 8 MEQ/L (2-14); CHLORIDE 106 MEQ/L (99-109); EOSINOPHIL (%) 0.5 % (0-5); GFR ESTIMATE (CALCULATED) > 59 mL/min/; GLUCOSE 122 mg/dL (70-99); HEMATOCRIT 32.6 % (38.0-50.0); IMMATURE GRANULOCYTE (%) 0.4 % (0.0-0.7); LYMPHOCYTE COUNT 1.8 K/uL (1.0-2.8); MAGNESIUM 1.9 mg/dl (1.3-2.7); MCH 30.6 PG (29.0-34.0); MCHC 33.4 G/DL (30.0-36.0); MCV 91.6 FL (86-99); MEAN PLAT.VOLUME 10.3 uM^3 (9.0-12.4); MONOCYTE (%) 6.7 % (3-12); MONOCYTE COUNT 0.6 K/uL (0-0.8); NEUTROPHIL (%) 70.6 % (45-76); PLATELET COUNT 252 K/uL (156-360); POTASSIUM 3.5 MEQ/L (3.7-5.4); RBC DIS.WIDTH-CV 12.6 % (11.8-14.6); RBC DIS.WIDTH-SD 42.5 % (39-53); RED BLOOD COUNT 3.56 M/uL (4.00-5.50); SAMPLE HEMOLYSIS CHECK 0; SAMPLE ICTERIC CHECK 0; SAMPLE LIPEMIA CHECK 0; UREA NITROGEN (BUN) 14 mg/dL (9-23)
[2017-04-08 07:43] LABS: WHITE BLOOD COUNT 8.5 K/uL (4.1-10.2)
[2017-04-08 07:48] LABS: SODIUM 141 MEQ/L (136-147)
[2017-04-08 09:16] LABS: POINT-OF-CARE METER ID UU13113725
[2017-04-08 11:33] LABS: POINT-OF-CARE METER ID UU13113725
[2017-04-08] MEDS ORDERED: LEVEMIR100 UNIT/2 SC ×2 (12:38)
[2017-04-08] MEDS ORDERED: AMOX TR-K CLV1 EAC4 PO (12:38)
[2017-04-08] MEDS ORDERED: NOVOLOG 10100 UNITS/ SC (12:38)
[2017-04-08 13:24] LABS: TROP-I INTERPRETATION NEGATIVE; TROPONIN-I 0.03 ng/mL (0.0-0.30)
[2017-04-08 13:44] LABS: POINT-OF-CARE METER ID UU13113725
[2017-04-08 14:51] VITALS: BP 133/76
[2017-04-08 16:03] VITALS: BP 127/64
[2017-04-08 16:08] LABS: POINT-OF-CARE METER ID UU13113725
[2017-04-08 19:10] VITALS: BP 139/80
[2017-04-09 04:48] LABS: CHLORIDE 106 mEq/L (99-109); SODIUM 140 mEq/L (136-147)
[2017-04-09 04:49] LABS: MAGNESIUM 1.8 mg/dL (1.3-2.7)
[2017-04-09 04:51] LABS: ANION GAP 7 MEQ/L (2-14); EOSINOPHIL (%) 0.4 % (0-5); HEMATOCRIT 34.3 % (38.0-50.0); IMMATURE GRANULOCYTE (%) 0.7 % (0.0-0.7); INSTRUMENT ABS NEUTROPHIL CT 3.1 K/uL; LYMPHOCYTE COUNT 1.8 K/uL (1.0-2.8); MCH 30.4 PG (29.0-34.0); MCHC 32.7 G/DL (30.0-36.0); MCV 93.2 FL (86-99); MEAN PLAT.VOLUME 10.2 uM^3 (9.0-12.4); MONOCYTE (%) 10.3 % (3-12); MONOCYTE COUNT 0.6 K/uL (0-0.8); NEUTROPHIL (%) 55.5 % (45-76); NEUTROPHIL COUNT 3.1 K/uL (1.8-6.4); PLATELET COUNT 239 K/uL (156-360); RBC DIS.WIDTH-CV 12.6 % (11.8-14.6); RBC DIS.WIDTH-SD 43.1 % (39-53); RED BLOOD COUNT 3.68 M/uL (4.00-5.50)
[2017-04-09 04:52] LABS: WHITE BLOOD COUNT 5.6 K/uL (4.1-10.2)
[2017-04-09 04:53] LABS: GFR ESTIMATE (CALCULATED) > 59 mL/min/
[2017-04-09 05:00] LABS: GLUCOSE 305 mg/dL (70-99); POTASSIUM 4.3 mEq/L (3.7-5.4); UREA NITROGEN (BUN) 22 mg/dL (9-23)
[2017-04-09 06:31] LABS: POINT-OF-CARE METER ID UU13113725
[2017-04-12 14:59] LABS: POINT-OF-CARE METER ID UU13113725
== END 2017-04-09 07:58 | disposition home health service (06) | DRG 638 ==
LOC: EME 13:53 → 5EAST 15:03 → 4WEST 15:03 → EDOF 15:03 → 4WEST 16:57 → 5EAST 04-07 14:44
PROVIDERS: Emergency Medicine; Internal Medicine; Internal Medicine Nephrology
DX: E13.10 Other specified diabetes mellitus with ketoacidosis without coma (principal); N17.9 Acute kidney failure, unspecified; E87.2 Acidosis; F33.9 Major depressive disorder, recurrent, unspecified; R10.9 Unspecified abdominal pain; R11.2 Nausea with vomiting, unspecified; R00.0 Tachycardia, unspecified; E87.5 Hyperkalemia; H60.92 Unspecified otitis externa, left ear; H66.92 Otitis media, unspecified, left ear; Z91.19 Patient's noncompliance with other medical treatment and regimen; D72.829 Elevated white blood cell count, unspecified; F17.210 Nicotine dependence, cigarettes, uncomplicated; E83.39 Other disorders of phosphorus metabolism; E87.1 Hypo-osmolality and hyponatremia; E86.9 Volume depletion, unspecified; F41.9 Anxiety disorder, unspecified; E83.42 Hypomagnesemia; E87.6 Hypokalemia
CPT/HCPCS: 36600; 71010; 80048; 80048 91; 80053; 80306 90; 81003; 82010; 82570; 82803; 82948; 83036; 83605; 83690; 83735; 84100; 84156; 84300; 84484; 84999; 85025; 85027; 87040; 87086; 87641; 93005; 94644; 99281; 99285; G0480; J0610; J1644; J1815; J2543; J3475; J7030; J7050; J7120

== ENCOUNTER 2017-04-26 10:38 | Inpatient (IN) | payer OTHER ==
[~2017-04-26] VITALS: Ht 175.3 cm; Wt 59.2 kg
[2017-04-26] VITALS (10 sets, daily range): BP systolic 91–127; BP diastolic 38–64
[~2017-04-26 10:38] MED LIST changes: +AMOX TR-K CLV1 EAC4 PO
[2017-04-26 11:28] LABS: VENOUS PCO2 < 20 mm Hg (41-51)
[2017-04-26 11:31] LABS: HEMATOCRIT 47.8 % (38.0-50.0); MCH 30.7 PG (29.0-34.0); MCHC 30.8 G/DL (30.0-36.0); RBC DIS.WIDTH-CV 12.8 % (11.8-14.6); RBC DIS.WIDTH-SD 47.4 % (39-53)
[2017-04-26 11:38] LABS: CHLORIDE 100 mEq/L (99-109); SODIUM 134 mEq/L (136-147)
[2017-04-26 11:42] LABS: TOTAL BILIRUBIN 0.2 mg/dL (0.0-1.0)
[2017-04-26 11:43] LABS: SERUM ETHYL ALCOHOL < 10 mg/dL
[2017-04-26 11:44] LABS: ALKALINE PHOSPHATASE 68 IU/L (3-129); GFR ESTIMATE (CALCULATED) 31 mL/min/
[2017-04-26 11:45] LABS: UREA NITROGEN (BUN) 44 mg/dL (9-23)
[2017-04-26 11:47] LABS: POTASSIUM 7.4 mEq/L (3.7-5.4)
[2017-04-26 11:56] LABS: GLUCOSE 717 mg/dL (70-99)
[2017-04-26 11:58] LABS: CARBON DIOXIDE (BICARBONATE) < 5.0 mEq/L (20-31); MCV 99.8 FL (86-99); RED BLOOD COUNT 4.79 M/uL (4.00-5.50); WHITE BLOOD COUNT 16.8 K/uL (4.1-10.2)
[2017-04-26 12:21] LABS: MEAN PLAT.VOLUME 10.7 uM^3 (9.0-12.4)
[2017-04-26 12:24] LABS: PLATELET COUNT 396 K/uL (156-360)
[2017-04-26 14:12] LABS: POINT-OF-CARE METER ID UU14100415
[2017-04-26 15:18] LABS: POINT-OF-CARE METER ID UU14174217
[2017-04-26 16:09] LABS: ADD MIUA? YES; BILIRUBIN NEGATIVE; BLOOD SMALL; COLOR YELLOW ((YELLOW)); GLUCOSE (STRIP) >=500; KETONES 80; LEUKOCYTES NEGATIVE; NITRITE NEGATIVE; PROTEIN (STRIP) 30; SPECIFIC GRAVITY 1.015 (1.000-1.030); UROBILINOGEN 0.2 MG/DL (0.2-1.0)
[2017-04-26 16:18] LABS: BACTERIA NONE SEEN /HPF; EPITHELIAL CELLS RARE /HPF; HYALINE CASTS 0-5 /LPF; MUCUS NONE SEEN /LPF; RED BLOOD CELLS 0-5 /HPF (0-5); UCUL ADDED? NO; WHITE BLOOD CELLS 0-5 /HPF (0-5)
[2017-04-26 16:22] LABS: CHLORIDE 112 mEq/L (99-109); POTASSIUM 5.2 mEq/L (3.7-5.4); SODIUM 144 mEq/L (136-147)
[2017-04-26 16:23] LABS: GLUCOSE 375 mg/dL (70-99)
[2017-04-26 16:24] LABS: POINT-OF-CARE METER ID UU14174217
[2017-04-26 16:25] LABS: ANION GAP 28 MEQ/L (2-14)
[2017-04-26 16:28] LABS: UREA NITROGEN (BUN) 41 mg/dL (9-23)
[2017-04-26 16:34] LABS: GFR ESTIMATE (CALCULATED) 44 mL/min/
[2017-04-26 16:51] LABS: AMPHETAMINES QUANT VALUE 0 NG/ML; BARBITUATES QUANT VALUE 0 NG/ML; BENZODIAZEPINES QUANT VALUE 0 NG/ML; BENZODIAZEPINES, URINE SCREEN Negative (200 ng/mL); MARIJUANA QUANT VALUE 0 NG/ML; OPIATES QUANTITATIVE VALUE 0 NG/ML
[2017-04-26 17:14] LABS: METH RESISTANT S AUREUS PCR NEGATIVE (NEGATIVE)
[2017-04-26 17:26] LABS: POINT-OF-CARE METER ID UU14174217
[2017-04-26 17:31] LABS: PROBE CHECK PASS; SPECIMEN PROCESSING CONTROL PASS
[2017-04-26 18:35] LABS: POINT-OF-CARE METER ID UU14174217
[2017-04-26 19:33] LABS: POINT-OF-CARE METER ID UU14174217
[2017-04-26 20:16] LABS: CHLORIDE 114 mEq/L (99-109); POTASSIUM 4.4 mEq/L (3.7-5.4); SODIUM 140 mEq/L (136-147)
[2017-04-26 20:20] LABS: ANION GAP 12 MEQ/L (2-14)
[2017-04-26 20:23] LABS: UREA NITROGEN (BUN) 32 mg/dL (9-23)
[2017-04-26 20:26] LABS: GFR ESTIMATE (CALCULATED) > 59 mL/min/; GLUCOSE 162 mg/dL (70-99)
[2017-04-26 20:37] LABS: POINT-OF-CARE METER ID UU14174217
[2017-04-26 20:57] LABS: POINT-OF-CARE METER ID UU14174217
[2017-04-26 21:58] LABS: POINT-OF-CARE METER ID UU14174217
[2017-04-26 22:49] LABS: POINT-OF-CARE METER ID UU14174217
[2017-04-26 23:21] LABS: POINT-OF-CARE METER ID UU14174217
[2017-04-27] VITALS (13 sets, daily range): BP systolic 89–110; BP diastolic 40–68
[2017-04-27 00:17] LABS: POINT-OF-CARE METER ID UU14174217
[2017-04-27 00:39] LABS: CHLORIDE 115 mEq/L (99-109)
[2017-04-27 00:40] LABS: POTASSIUM 3.9 mEq/L (3.7-5.4); SODIUM 138 mEq/L (136-147)
[2017-04-27 00:43] LABS: ANION GAP 8 MEQ/L (2-14)
[2017-04-27 00:44] LABS: POINT-OF-CARE METER ID UU14174217
[2017-04-27 00:45] LABS: GFR ESTIMATE (CALCULATED) > 59 mL/min/
[2017-04-27 00:46] LABS: GLUCOSE 325 mg/dL (70-99); UREA NITROGEN (BUN) 25 mg/dL (9-23)
[2017-04-27 01:43] LABS: POINT-OF-CARE METER ID UU14162636
[2017-04-27 02:43] LABS: POINT-OF-CARE METER ID UU14162636
[2017-04-27 03:42] LABS: POINT-OF-CARE METER ID UU14162636
[2017-04-27 04:39] LABS: POINT-OF-CARE METER ID UU14162636
[2017-04-27 05:40] LABS: POINT-OF-CARE METER ID UU14162636
[2017-04-27 06:38] LABS: POINT-OF-CARE METER ID UU14162636
[2017-04-27 07:34] LABS: Estimated Average Glucose 332 mg/dL (70-123); HEMOGLOBIN A1c (GLYCOHEMOGLOB) 13.2 % HGB (Below 5.7)
[2017-04-27 07:41] LABS: POINT-OF-CARE METER ID UU14162636
[2017-04-27 08:01] LABS: ANION GAP 4 MEQ/L (2-14); CHLORIDE 114 MEQ/L (99-109); GFR ESTIMATE (CALCULATED) > 59 mL/min/; GLUCOSE 169 mg/dL (70-99); POTASSIUM 3.3 MEQ/L (3.7-5.4); SAMPLE HEMOLYSIS CHECK 0; SAMPLE ICTERIC CHECK 0; SAMPLE LIPEMIA CHECK 0; SODIUM 138 MEQ/L (136-147); UREA NITROGEN (BUN) 23 mg/dL (9-23)
[2017-04-27 08:29] LABS: ANION GAP 4 MEQ/L (2-14); CHLORIDE 113 MEQ/L (99-109); POTASSIUM 3.4 MEQ/L (3.7-5.4); SAMPLE HEMOLYSIS CHECK 0; SAMPLE ICTERIC CHECK 0; SAMPLE LIPEMIA CHECK 0; SODIUM 138 MEQ/L (136-147)
[2017-04-27 08:44] LABS: GFR ESTIMATE (CALCULATED) > 59 mL/min/; UREA NITROGEN (BUN) 21 mg/dL (9-23)
[2017-04-27 08:47] LABS: GLUCOSE 88 mg/dL (70-99)
[2017-04-27 08:52] LABS: POINT-OF-CARE METER ID UU14162636
[2017-04-27 09:55] LABS: POINT-OF-CARE METER ID UU14162636
[2017-04-27 10:08] LABS: POINT-OF-CARE METER ID UU14100415
[2017-04-27 10:08] LABS: POINT-OF-CARE METER ID UU14100415
[2017-04-27 10:08] LABS: POINT-OF-CARE METER ID UU14100415
[2017-04-27 11:07] LABS: POINT-OF-CARE METER ID UU14162636
[2017-04-27 11:44] LABS: POINT-OF-CARE METER ID UU14162636
[2017-04-27 12:14] LABS: POINT-OF-CARE METER ID UU14162636
[2017-04-27 13:38] LABS: POINT-OF-CARE METER ID UU14162636
[2017-04-27] MEDS ORDERED: LANTUS 10100 UNITS/ SC (15:00)
[2017-04-27] MEDS ORDERED: ALEVE220 MG PO (15:01)
[2017-04-27 17:18] LABS: POINT-OF-CARE METER ID UU14162636
[2017-04-28] VITALS: BP 104/66
[2017-04-28 01:21] LABS: POINT-OF-CARE METER ID UU13113803
[2017-04-28 04:00] VITALS: BP 100/56
[2017-04-28 05:16] LABS: POINT-OF-CARE METER ID UU13113803
[2017-04-28 05:47] LABS: ALKALINE PHOSPHATASE 50 IU/L (3-129); ANION GAP 7 MEQ/L (2-14); CHLORIDE 105 MEQ/L (99-109); GFR ESTIMATE (CALCULATED) > 59 mL/min/; POTASSIUM 3.4 MEQ/L (3.7-5.4); SAMPLE HEMOLYSIS CHECK 0; SAMPLE ICTERIC CHECK 0; SAMPLE LIPEMIA CHECK 0; SODIUM 139 MEQ/L (136-147); TOTAL BILIRUBIN 0.2 MG/DL (0.0-1.0); UREA NITROGEN (BUN) 18 mg/dL (9-23)
[2017-04-28 05:48] LABS: GLUCOSE 278 mg/dL (70-99)
[2017-04-28 06:02] LABS: EOSINOPHIL (%) 0.7 % (0-5); EOSINOPHIL COUNT 0.1 K/uL (0-0.3); HEMATOCRIT 35.1 % (38.0-50.0); IMMATURE GRANULOCYTE (%) 0.2 % (0.0-0.7); INSTRUMENT ABS NEUTROPHIL CT 6.3 K/uL; LYMPHOCYTE COUNT 2.4 K/uL (1.0-2.8); MCH 31.3 PG (29.0-34.0); MCHC 34.2 G/DL (30.0-36.0); MEAN PLAT.VOLUME 10.6 uM^3 (9.0-12.4); MONOCYTE COUNT 0.7 K/uL (0-0.8); NEUTROPHIL (%) 66.3 % (45-76); NEUTROPHIL COUNT 6.3 K/uL (1.8-6.4); PLAT.SUFFICIENCY ADEQUATE; RBC DIS.WIDTH-CV 12.9 % (11.8-14.6); RBC DIS.WIDTH-SD 42.6 % (39-53)
[2017-04-28 06:04] LABS: MCV 91.6 FL (86-99); PLATELET COUNT 243 K/uL (156-360); RED BLOOD COUNT 3.83 M/uL (4.00-5.50); WHITE BLOOD COUNT 9.5 K/uL (4.1-10.2)
[2017-04-28 08:39] LABS: POINT-OF-CARE METER ID UU14162636
[2017-04-28 08:50] LABS: POINT-OF-CARE METER ID UU13113803
[2017-04-28 09:32] VITALS: BP 105/57
[2017-04-28 12:27] LABS: POINT-OF-CARE METER ID UU13113803
[2017-04-28 16:24] LABS: POINT-OF-CARE METER ID UU13113803
[2017-04-28 17:58] VITALS: BP 141/87
[2017-04-29 14:17] LABS: POINT-OF-CARE METER ID UU13113803
== END 2017-04-28 19:15 | disposition left against medical advice (07) | DRG 638 ==
LOC: EME 10:38 → 4WEST 12:37 → EDOF 12:37 → 4WEST 14:26
PROVIDERS: Emergency Medicine; Hospitalist; Internal Medicine Critical Care Medicine; Student in an Organized Health Care Education/Training Program
DX: E13.10 Other specified diabetes mellitus with ketoacidosis without coma (principal); N17.9 Acute kidney failure, unspecified; F19.10 Other psychoactive substance abuse, uncomplicated; E83.39 Other disorders of phosphorus metabolism; F11.10 Opioid abuse, uncomplicated; F32.9 Major depressive disorder, single episode, unspecified; F10.10 Alcohol abuse, uncomplicated; D72.829 Elevated white blood cell count, unspecified; E87.6 Hypokalemia; R00.0 Tachycardia, unspecified; F17.210 Nicotine dependence, cigarettes, uncomplicated; Z79.4 Long term (current) use of insulin; Z91.14 Patient's other noncompliance with medication regimen
CPT/HCPCS: 71010; 80048; 80048 91; 80053; 80306 90; 81003; 82010; 82803; 82948; 83036; 84100; 84999; 85025; 85027; 87641; 93005; 99281; 99285; G0480; J0610; J1644; J1815; J7030; J7050; J7120

== ENCOUNTER 2017-06-11 16:33 | Inpatient (IN) | payer OTHER ==
[~2017-06-11] VITALS: Ht 175.3 cm; Wt 59.4 kg
[~2017-06-11 16:33] MED LIST changes: +ALEVE220 MG PO
[2017-06-11 16:53] LABS: MEAN PLAT.VOLUME 11.7 uM^3 (9.0-12.4); PLATELET COUNT 399 K/uL (156-360)
[2017-06-11 16:55] LABS: CARBOXY HGB 1.2 % (0-5); COMMENTS - BLOOD GASES A+C+; DEVICE RA; METHEMOGLOBIN 1.2 % (0-1.5); PCO2 < 20 mm Hg (35-45); PO2 138 mm Hg (80-100); SITE RB; pH < 6.91 (7.35-7.45)
[2017-06-11 17:12] LABS: HEMATOCRIT 42.3 % (38.0-50.0); MCHC 28.8 G/DL (30.0-36.0); MCV 107.4 FL (86-99); RBC DIS.WIDTH-CV 13.5 % (11.8-14.6); RBC DIS.WIDTH-SD 55.1 % (39-53); RED BLOOD COUNT 3.94 M/uL (4.00-5.50)
[2017-06-11 17:13] LABS: WHITE BLOOD COUNT 31.9 K/uL (4.1-10.2)
[2017-06-11 18:11] LABS: ALKALINE PHOSPHATASE 106 IU/L (3-129); ANION GAP 40 MEQ/L (2-14); CHLORIDE 88 mEq/L (99-109); GFR ESTIMATE (CALCULATED) 23 mL/min/; SODIUM 130 mEq/L (136-147); TOTAL BILIRUBIN 0.2 mg/dL (0.0-1.0); UREA NITROGEN (BUN) 59 mg/dL (9-23)
[2017-06-11 18:12] LABS: POTASSIUM 6.4 mEq/L (3.7-5.4)
[2017-06-11 18:19] LABS: GLUCOSE 865 mg/dL (70-99)
[2017-06-11 18:21] LABS: LIPASE 31 U/L (1.0-51.0)
[2017-06-11 18:27] LABS: ADD MIUA? YES; BILIRUBIN NEGATIVE; BLOOD SMALL; COLOR STRAW ((YELLOW)); GLUCOSE (STRIP) >=500; KETONES 80; LEUKOCYTES NEGATIVE; NITRITE NEGATIVE; PROTEIN (STRIP) 30; SPECIFIC GRAVITY 1.012 (1.000-1.030); UROBILINOGEN 0.2 MG/DL (0.2-1.0)
[2017-06-11 18:32] LABS: BACTERIA RARE /HPF; EPITHELIAL CELLS NONE SEEN /HPF; HYALINE CASTS 0-5 /LPF; MUCUS TRACE /LPF; RED BLOOD CELLS 0-5 /HPF (0-5); UCUL ADDED? NO; WHITE BLOOD CELLS 0-5 /HPF (0-5)
[2017-06-11 18:38] LABS: ADD MEDTOX COMMENT Y; AMPHETAMINE NEGATIVE (500 ng/mL); BARBITURATES NEGATIVE (200 ng/mL); BENZODIAZEPINES NEGATIVE (150 ng/mL); COCAINE PRESUMPTIVE POSITIVE (150 ng/mL); INTERNAL CONTROLS VALID? YES; METHADONE NEGATIVE (200 ng/mL); METHAMPHETAMINE NEGATIVE (500 ng/mL); OPIATES (MORPHINE) PRESUMPTIVE POSITIVE (100 ng/mL); OXYCODONE NEGATIVE (100 ng/mL); PHENCYCLIDINE NEGATIVE (25 ng/mL); PROPOXYPHENE NEGATIVE (300 ng/mL); THC CANNABINOIDS NEGATIVE (50 ng/mL); TRICYCLIC ANTIDEPRESSANTS NEGATIVE (300 ng/mL)
[2017-06-11 18:46] LABS: GLUCOSE 731 mg/dL (70-99)
[2017-06-11 19:45] LABS: Estimated Average Glucose 318 mg/dL (70-123); HEMOGLOBIN A1c (GLYCOHEMOGLOB) 12.7 % HGB (Below 5.7)
[2017-06-11 20:44] VITALS: BP 102/58
[2017-06-11 21:00] VITALS: BP 116/59
[2017-06-11 21:03] VITALS: BP 116/59
[2017-06-11 21:30] LABS: POINT-OF-CARE METER ID UU14174217
[2017-06-11 22:00] VITALS: BP 109/54
[2017-06-11 22:10] LABS: ANION GAP 30 MEQ/L (2-14); CHLORIDE 102 MEQ/L (99-109); GFR ESTIMATE (CALCULATED) 41 mL/min/; GLUCOSE 386 mg/dL (70-99); POTASSIUM 4.8 MEQ/L (3.7-5.4); SAMPLE HEMOLYSIS CHECK 0; SAMPLE ICTERIC CHECK 0; SAMPLE LIPEMIA CHECK 0; SODIUM 142 MEQ/L (136-147); UREA NITROGEN (BUN) 48 mg/dL (9-23)
[2017-06-11 22:14] LABS: METH RESISTANT S AUREUS PCR NEGATIVE (NEGATIVE)
[2017-06-11 22:15] LABS: PROBE CHECK PASS; SPECIMEN PROCESSING CONTROL PASS
[2017-06-11 22:32] LABS: MAGNESIUM 2.6 mg/dl (1.3-2.7)
[2017-06-11 22:35] LABS: POINT-OF-CARE METER ID UU14174217
[2017-06-11 23:00] VITALS: BP 112/50
[2017-06-11 23:20] LABS: POINT-OF-CARE METER ID UU14174217
[2017-06-11 23:34] LABS: POINT-OF-CARE METER ID UU14174217
[2017-06-12] VITALS (16 sets, daily range): BP systolic 97–119; BP diastolic 43–68
[2017-06-12 00:50] LABS: POINT-OF-CARE METER ID UU14174217
[2017-06-12 01:08] LABS: CHLORIDE 110 mEq/L (99-109); MAGNESIUM 2.1 mg/dL (1.3-2.7); SODIUM 145 mEq/L (136-147)
[2017-06-12 01:11] LABS: ANION GAP 18 MEQ/L (2-14)
[2017-06-12 01:13] LABS: GFR ESTIMATE (CALCULATED) 54 mL/min/
[2017-06-12 01:14] LABS: GLUCOSE 176 mg/dL (70-99); UREA NITROGEN (BUN) 35 mg/dL (9-23)
[2017-06-12 01:50] LABS: POINT-OF-CARE METER ID UU13113803
[2017-06-12 02:49] LABS: POINT-OF-CARE METER ID UU13113803
[2017-06-12 04:52] LABS: POINT-OF-CARE METER ID UU13113803
[2017-06-12 05:10] LABS: CHLORIDE 111 mEq/L (99-109); POTASSIUM 4.1 mEq/L (3.7-5.4); SODIUM 146 mEq/L (136-147)
[2017-06-12 05:11] LABS: MAGNESIUM 1.9 mg/dL (1.3-2.7)
[2017-06-12 05:12] LABS: GLUCOSE 194 mg/dL (70-99)
[2017-06-12 05:14] LABS: ANION GAP 14 MEQ/L (2-14)
[2017-06-12 05:16] LABS: GFR ESTIMATE (CALCULATED) 58 mL/min/
[2017-06-12 05:17] LABS: UREA NITROGEN (BUN) 36 mg/dL (9-23)
[2017-06-12 05:53] LABS: POINT-OF-CARE METER ID UU13113803
[2017-06-12 06:56] LABS: POINT-OF-CARE METER ID UU13113803
[2017-06-12 08:13] LABS: POINT-OF-CARE METER ID UU13113803
[2017-06-12 09:46] LABS: POINT-OF-CARE METER ID UU13113803
[2017-06-12 10:04] LABS: ANION GAP 10 MEQ/L (2-14); CHLORIDE 111 MEQ/L (99-109); GFR ESTIMATE (CALCULATED) > 59 mL/min/; GLUCOSE 127 mg/dL (70-99); POTASSIUM 3.4 MEQ/L (3.7-5.4); SAMPLE HEMOLYSIS CHECK 0; SAMPLE ICTERIC CHECK 0; SAMPLE LIPEMIA CHECK 0; SODIUM 146 MEQ/L (136-147); UREA NITROGEN (BUN) 29 mg/dL (9-23)
[2017-06-12 11:43] LABS: POINT-OF-CARE METER ID UU13113803
[2017-06-12 13:27] LABS: ANION GAP 14 MEQ/L (2-14); CHLORIDE 107 MEQ/L (99-109); GFR ESTIMATE (CALCULATED) > 59 mL/min/; SAMPLE HEMOLYSIS CHECK 0; SAMPLE ICTERIC CHECK 0; SAMPLE LIPEMIA CHECK 0; SODIUM 141 MEQ/L (136-147); UREA NITROGEN (BUN) 27 mg/dL (9-23)
[2017-06-12 13:30] LABS: GLUCOSE 268 mg/dL (70-99); POTASSIUM 4.3 MEQ/L (3.7-5.4)
[2017-06-12 14:12] LABS: POINT-OF-CARE METER ID UU13113803
[2017-06-12 17:06] LABS: ANION GAP 12 MEQ/L (2-14); CHLORIDE 106 MEQ/L (99-109); GFR ESTIMATE (CALCULATED) > 59 mL/min/; GLUCOSE 285 mg/dL (70-99); MAGNESIUM 2.1 mg/dl (1.3-2.7); SAMPLE HEMOLYSIS CHECK 0; SAMPLE ICTERIC CHECK 0; SAMPLE LIPEMIA CHECK 0; SODIUM 140 MEQ/L (136-147); UREA NITROGEN (BUN) 26 mg/dL (9-23)
[2017-06-12 17:45] LABS: POINT-OF-CARE METER ID UU13113803
[2017-06-12 21:12] LABS: POINT-OF-CARE METER ID UU13113803
[2017-06-13 00:17] VITALS: BP 116/72
[2017-06-13 02:46] LABS: POINT-OF-CARE METER ID UU14174225
[2017-06-13 05:27] LABS: POINT-OF-CARE METER ID UU14174225
[2017-06-13 06:32] LABS: HEMATOCRIT 29.4 % (38.0-50.0); MCH 31.5 PG (29.0-34.0); MCHC 34.4 G/DL (30.0-36.0); RBC DIS.WIDTH-CV 13.9 % (11.8-14.6); RBC DIS.WIDTH-SD 46.8 % (39-53); RED BLOOD COUNT 3.21 M/uL (4.00-5.50); WHITE BLOOD COUNT 9.9 K/uL (4.1-10.2)
[2017-06-13 06:38] LABS: MCV 91.6 FL (86-99)
[2017-06-13 06:38] LABS: ANION GAP 7 MEQ/L (2-14); CHLORIDE 107 MEQ/L (99-109); GFR ESTIMATE (CALCULATED) > 59 mL/min/; GLUCOSE 191 mg/dL (70-99); MAGNESIUM 1.9 mg/dl (1.3-2.7); POTASSIUM 3.3 MEQ/L (3.7-5.4); SAMPLE HEMOLYSIS CHECK 0; SAMPLE ICTERIC CHECK 0; SAMPLE LIPEMIA CHECK 0; SODIUM 141 MEQ/L (136-147); UREA NITROGEN (BUN) 17 mg/dL (9-23)
[2017-06-13 06:46] LABS: PLAT.SUFFICIENCY ADEQUATE
[2017-06-13 06:47] LABS: PLATELET COUNT 223 K/uL (156-360)
[2017-06-13 09:45] VITALS: BP 129/62
[2017-06-13 10:29] LABS: POINT-OF-CARE METER ID UU14174225
[2017-06-13] MEDS ORDERED: LEVEMIR100 UNIT/2 SC (10:59)
[2017-06-13] MEDS ORDERED: LANTUS 10100 UNITS/ SC (11:00)
[2017-06-13 22:36] LABS: POINT-OF-CARE METER ID UU14100415
[2017-06-13 22:36] LABS: POINT-OF-CARE METER ID UU14100415
== END 2017-06-13 14:42 | disposition home or self-care (01) | DRG 638 ==
LOC: EME 16:33 → EDOF 18:39 → 4WEST 20:43 → 5SOUTH 06-13 00:01
PROVIDERS: Emergency Medicine; Hospitalist; Internal Medicine; Internal Medicine Critical Care Medicine; Internal Medicine Nephrology
DX: E13.10 Other specified diabetes mellitus with ketoacidosis without coma (principal); N17.9 Acute kidney failure, unspecified; E87.6 Hypokalemia; E86.1 Hypovolemia; Z79.4 Long term (current) use of insulin; F14.10 Cocaine abuse, uncomplicated; F19.239 Other psychoactive substance dependence with withdrawal, unspecified; F17.200 Nicotine dependence, unspecified, uncomplicated; F32.9 Major depressive disorder, single episode, unspecified; Z91.19 Patient's noncompliance with other medical treatment and regimen; F41.9 Anxiety disorder, unspecified
CPT/HCPCS: 36600; 71010; 80048; 80048 91; 80053; 81003; 82010; 82803; 82948; 83036; 83690; 83735; 84100; 84999; 85027; 87040; 87641; 93005; 99281; 99285; J1644; J1815; J3411; J3480; J7030; J7040; J7050

== ENCOUNTER 2018-02-24 06:23 | Emergency (ER) | payer OTHER ==
[~2018-02-24] VITALS: Ht 175.3 cm; Wt 81.5 kg
[2018-02-24 07:00] LABS: BASOPHIL (%) 0.3 % (0-1); BASOPHIL COUNT 0.1 K/uL (0-0.1); EOSINOPHIL (%) 0.4 % (0-5); EOSINOPHIL COUNT 0.1 K/uL (0-0.3); HEMATOCRIT 40.8 % (38.0-50.0); HEMOGLOBIN 14.4 G/DL (12.5-16.6); IMMATURE GRANULOCYTE (%) 0.5 % (0.0-0.7); LYMPHOCYTE (%) 8.1 % (15-42); LYMPHOCYTE COUNT 1.9 K/uL (1.0-2.8); MCH 29.9 PG (29.0-34.0); MCHC 35.3 G/DL (30.0-36.0); MCV 84.8 FL (86-99); MONOCYTE (%) 8.9 % (3-12); MONOCYTE COUNT 2.1 K/uL (0-0.8); NEUTROPHIL (%) 81.8 % (45-76); NEUTROPHIL COUNT 18.8 K/uL (1.8-6.4); PLATELET COUNT 263 K/uL (156-360); RBC DIS.WIDTH-CV 12.2 % (11.8-14.6); RBC DIS.WIDTH-SD 37.5 % (39-53); RED BLOOD COUNT 4.81 M/uL (4.00-5.50)
[2018-02-24 07:29] LABS: CHLORIDE 108 MEQ/L (99-109); CREATININE 0.7 MG/DL (0.6-1.3); GFR ESTIMATE (CALCULATED) > 59 mL/min/ (58.99-99999); POTASSIUM 3.6 MEQ/L (3.7-5.4); SODIUM 142 MEQ/L (136-147); UREA NITROGEN (BUN) 16 mg/dL (9-23)
[2018-02-24 07:48] LABS: GLUCOSE 48 mg/dL (70-99)
[2018-02-24 08:26] LABS: APPEARANCE SL.HAZY ((CLEAR)); BILIRUBIN NEGATIVE; BLOOD NEGATIVE; COLOR YELLOW ((YELLOW)); GLUCOSE (STRIP) NEGATIVE; KETONES NEGATIVE; LEUKOCYTES NEGATIVE; NITRITE NEGATIVE; PROTEIN (STRIP) NEGATIVE; SPECIFIC GRAVITY 1.019 (1.000-1.030); UROBILINOGEN 0.2 MG/DL (0.2-1.0)
[2018-02-24 08:43] LABS: BACTERIA RARE /HPF; EPITHELIAL CELLS NONE SEEN /HPF; HYALINE CASTS 0-5 /LPF; MUCUS 1+ /LPF; RED BLOOD CELLS 0-5 /HPF (0-5); WHITE BLOOD CELLS 0-5 /HPF (0-5)
[2018-02-24 09:24] VITALS: BP 141/76
== END 2018-02-24 09:26 ==
LOC: EME → EDBD 06:23 → EME 09:26
PROVIDERS: Emergency Medicine
DX: E11.649 Type 2 diabetes mellitus with hypoglycemia without coma (principal); D72.829 Elevated white blood cell count, unspecified; F32.9 Major depressive disorder, single episode, unspecified; F41.9 Anxiety disorder, unspecified; F17.200 Nicotine dependence, unspecified, uncomplicated; Z79.4 Long term (current) use of insulin; Z79.82 Long term (current) use of aspirin
CPT/HCPCS: 71045; 80048; 81003; 82948; 85025; 99281; 99285

== ENCOUNTER 2018-05-13 13:10 | Emergency (ER) | payer OTHER ==
[~2018-05-13] VITALS: Ht 175.3 cm; Wt 75.3 kg
[2018-05-13] MEDS ORDERED: [UNRECOGNIZED DRUG - SUPPLY] MC (15:36)
[2018-05-13] MEDS ORDERED: LANTUS 10100 UNITS/ SC (15:36)
[2018-05-13] MEDS ORDERED: ONE TOUCH ULTR1 EAC4 MC (15:36)
[2018-05-13] MEDS ORDERED: NOVOLOG 10100 UNITS/ SC (15:36)
[2018-05-13] MEDS ORDERED: ONE TOUCH VERI1 EAC6 MC (15:36)
[2018-05-13] MEDS ORDERED: INSULIN SYRING MC (15:36)
[2018-05-13 15:49] VITALS: BP 142/89
== END 2018-05-13 15:49 | disposition home or self-care (01) ==
LOC: EME 13:10
DX: E11.9 Type 2 diabetes mellitus without complications (principal); Z76.0 Encounter for issue of repeat prescription
CPT/HCPCS: 82948; 99281; 99283

== ENCOUNTER 2018-07-11 01:38 | Inpatient (IN) | payer OTHER ==
[2018-07-11] VITALS (21 sets, daily range): BP systolic 97–139; BP diastolic 54–79
[~2018-07-11] VITALS: Ht 175.3 cm; Wt 73.8 kg
[~2018-07-11 01:38] MED LIST changes: +INSULIN SYRING MC; +ONE TOUCH ULTR1 EAC4 MC; +ONE TOUCH VERI1 EAC6 MC; +[UNRECOGNIZED DRUG - SUPPLY] MC
[2018-07-11 02:17] LABS: HEMATOCRIT 42.6 % (38.0-50.0); HEMOGLOBIN 13.9 G/DL (12.5-16.6); MCH 30.3 PG (29.0-34.0); MCHC 32.6 G/DL (30.0-36.0); MCV 92.8 FL (86-99); PLATELET COUNT 265 K/uL (156-360); RBC DIS.WIDTH-CV 13.1 % (11.8-14.6); RBC DIS.WIDTH-SD 44.9 % (39-53); RED BLOOD COUNT 4.59 M/uL (4.00-5.50)
[2018-07-11 02:30] LABS: APPEARANCE CLEAR ((CLEAR)); BILIRUBIN NEGATIVE; BLOOD NEGATIVE; COLOR COLORLESS ((YELLOW)); GLUCOSE (STRIP) >=500; KETONES 80; LEUKOCYTES NEGATIVE; NITRITE NEGATIVE; PROTEIN (STRIP) NEGATIVE; SPECIFIC GRAVITY 1.023 (1.000-1.030); UCUL ADDED? NO; UROBILINOGEN 0.2 MG/DL (0.2-1.0)
[2018-07-11 02:31] LABS: ALBUMIN 4.2 g/dL (3.2-4.8)
[2018-07-11 02:32] LABS: CHLORIDE 98 mEq/L (99-109); POTASSIUM 5.2 mEq/L (3.7-5.4); SODIUM 134 mEq/L (136-147)
[2018-07-11 02:34] LABS: TOTAL PROTEIN 7.4 g/dL (6.4-8.3)
[2018-07-11 02:35] LABS: GLUCOSE 676 mg/dL (70-99)
[2018-07-11 02:36] LABS: TOTAL BILIRUBIN 0.3 mg/dL (0.0-1.0)
[2018-07-11 02:37] LABS: ALKALINE PHOSPHATASE 80 IU/L (3-129)
[2018-07-11 02:39] LABS: UREA NITROGEN (BUN) 21 mg/dL (9-23)
[2018-07-11 02:40] LABS: AST (GOT) 19 IU/L (2-34)
[2018-07-11 02:41] LABS: ALT (GPT) 25 IU/L (3-49)
[2018-07-11 03:30] LABS: COMMENTS - BLOOD GASES C+; FI02 21 %; PCO2 19 mm Hg (35-45); PO2 110 mm Hg (80-100); SITE RB; TOTAL RESP RATE 32 resp/min; pH 7.15 (7.35-7.45)
[2018-07-11 03:31] LABS: BASE EXCESS -20.2 mEq/L (-3 to +3); BICARBONATE 6.6 mEq/L (22-26); CARBOXY HGB 3.2 % (0-5); O2 SATURATION (CALCULATED) 99.2 % (95-99)
[2018-07-11 03:47] LABS: CREATININE 1.7 mg/dL (0.6-1.3); GFR ESTIMATE (CALCULATED) 46 mL/min/ (58.99-99999)
[2018-07-11 06:12] LABS: CHLORIDE 104 MEQ/L (99-109); LIPASE 7 U/L (1.0-51.0); PHOSPHORUS 4.1 mg/dL (2.5-4.9); POTASSIUM 4.8 MEQ/L (3.7-5.4); SODIUM 138 MEQ/L (136-147); UREA NITROGEN (BUN) 20 mg/dL (9-23)
[2018-07-11 06:22] LABS: CREATININE 1.1 MG/DL (0.6-1.3); GFR ESTIMATE (CALCULATED) > 59 mL/min/ (58.99-99999); GLUCOSE 529 mg/dL (70-99)
[2018-07-11 09:20] LABS: CHLORIDE 108 MEQ/L (99-109); CREATININE 0.9 MG/DL (0.6-1.3); GFR ESTIMATE (CALCULATED) > 59 mL/min/ (58.99-99999); PHOSPHORUS 2.9 mg/dL (2.5-4.9); POTASSIUM 4.5 MEQ/L (3.7-5.4); SODIUM 138 MEQ/L (136-147); UREA NITROGEN (BUN) 15 mg/dL (9-23)
[2018-07-11 09:23] LABS: GLUCOSE 172 mg/dL (70-99)
[2018-07-11 09:51] LABS: HEMOGLOBIN A1c (GLYCOHEMOGLOB) 10.3 % (Below 5.7)
[2018-07-11] MEDS ORDERED: NAPROSYN250 MG PO (11:44)
[2018-07-11] MEDS ORDERED: BASAGLAR K100 UNIT/1 SC (11:44)
[2018-07-11] MEDS ORDERED: NOVOLOG 10100 UNITS/ SC (11:44)
[2018-07-11] MEDS ORDERED: PAXIL40 MG PO (11:44)
[2018-07-11] MEDS ORDERED: CHLOR-TRIMETON4 MG PO (11:47)
[2018-07-11 12:43] LABS: CHLORIDE 108 MEQ/L (99-109); CREATININE 0.9 MG/DL (0.6-1.3); GFR ESTIMATE (CALCULATED) > 59 mL/min/ (58.99-99999); GLUCOSE 226 mg/dL (70-99); PHOSPHORUS 2.8 mg/dL (2.5-4.9); POTASSIUM 3.9 MEQ/L (3.7-5.4); SODIUM 137 MEQ/L (136-147); UREA NITROGEN (BUN) 14 mg/dL (9-23)
[2018-07-11 19:19] LABS: CHLORIDE 105 MEQ/L (99-109); CREATININE 0.9 MG/DL (0.6-1.3); GFR ESTIMATE (CALCULATED) > 59 mL/min/ (58.99-99999); GLUCOSE 247 mg/dL (70-99); POTASSIUM 3.5 MEQ/L (3.7-5.4); SODIUM 136 MEQ/L (136-147); UREA NITROGEN (BUN) 16 mg/dL (9-23)
[2018-07-11 20:21] LABS: PHOSPHORUS 2.1 mg/dL (2.5-4.9)
[2018-07-12] VITALS (15 sets, daily range): BP systolic 98–132; BP diastolic 50–863
[2018-07-12 00:58] LABS: CHLORIDE 106 mEq/L (99-109); POTASSIUM 3.5 mEq/L (3.7-5.4); SODIUM 139 mEq/L (136-147)
[2018-07-12 01:00] LABS: GLUCOSE 155 mg/dL (70-99)
[2018-07-12 01:04] LABS: CREATININE 0.8 mg/dL (0.6-1.3); GFR ESTIMATE (CALCULATED) > 59 mL/min/ (58.99-99999)
[2018-07-12 01:05] LABS: UREA NITROGEN (BUN) 15 mg/dL (9-23)
[2018-07-12 05:31] LABS: CHLORIDE 106 MEQ/L (99-109); CREATININE 0.7 MG/DL (0.6-1.3); GFR ESTIMATE (CALCULATED) > 59 mL/min/ (58.99-99999); GLUCOSE 219 mg/dL (70-99); PHOSPHORUS 2.7 mg/dL (2.5-4.9); POTASSIUM 3.7 MEQ/L (3.7-5.4); SODIUM 138 MEQ/L (136-147); UREA NITROGEN (BUN) 13 mg/dL (9-23)
[2018-07-12 08:43] LABS: BASOPHIL (%) 0.3 % (0-1); EOSINOPHIL COUNT 0.4 K/uL (0-0.3); HEMATOCRIT 35.7 % (38.0-50.0); IMMATURE GRANULOCYTE (%) 0.1 % (0.0-0.7); LYMPHOCYTE (%) 37.7 % (15-42); LYMPHOCYTE COUNT 2.7 K/uL (1.0-2.8); MCHC 33.3 G/DL (30.0-36.0); MCV 89.9 FL (86-99); MONOCYTE (%) 9.3 % (3-12); MONOCYTE COUNT 0.7 K/uL (0-0.8); NEUTROPHIL (%) 47.6 % (45-76); NEUTROPHIL COUNT 3.4 K/uL (1.8-6.4); PLATELET COUNT 268 K/uL (156-360); RBC DIS.WIDTH-CV 12.9 % (11.8-14.6); RED BLOOD COUNT 3.97 M/uL (4.00-5.50); WHITE BLOOD COUNT 7.1 K/uL (4.1-10.2)
[2018-07-12 08:45] LABS: HEMOGLOBIN 11.9 G/DL (12.5-16.6)
[2018-07-13 00:56] VITALS: BP 133/69
[2018-07-13 08:14] VITALS: BP 136/59
[2018-07-13 15:31] VITALS: BP 139/57
[2018-07-14] VITALS: BP 133/75
[2018-07-14 06:08] LABS: CHLORIDE 101 MEQ/L (99-109); CREATININE 0.7 MG/DL (0.6-1.3); GFR ESTIMATE (CALCULATED) > 59 mL/min/ (58.99-99999); GLUCOSE 156 mg/dL (70-99); POTASSIUM 4.1 MEQ/L (3.7-5.4); SODIUM 136 MEQ/L (136-147); UREA NITROGEN (BUN) 14 mg/dL (9-23)
[2018-07-14 07:22] LABS: HEMOGLOBIN 12.3 G/DL (12.5-16.6); MCH 29.9 PG (29.0-34.0); MCHC 34.2 G/DL (30.0-36.0); MCV 87.4 FL (86-99); PLATELET COUNT 268 K/uL (156-360); RBC DIS.WIDTH-CV 12.7 % (11.8-14.6); RBC DIS.WIDTH-SD 40.5 % (39-53); RED BLOOD COUNT 4.12 M/uL (4.00-5.50); WHITE BLOOD COUNT 7.4 K/uL (4.1-10.2)
[2018-07-14 08:02] VITALS: BP 136/73
[2018-07-14] MEDS ORDERED: BASAGLAR K100 UNIT/1 SC (08:24)
[2018-07-14] MEDS ORDERED: NOVOLOG 10100 UNITS/ SC (08:25)
[2018-07-14] MEDS ORDERED: INSULIN SYRING1 EA53 MC (08:25)
[2018-07-14] MEDS ORDERED: EASY TOUCH HYP1 EA10 MC (08:26)
== END 2018-07-14 15:23 | disposition home or self-care (01) | DRG 638 ==
LOC: EME → EDBD 01:38 → ENRESERV 03:34 → 4WEST 03:34 → 5SOUTH 03:34 → EDOF 03:34 → ENRESERV 03:38 → 4WEST 04:16 → ENRESERV 07-12 13:03 → 5SOUTH 07-12 16:59
PROVIDERS: Emergency Medicine; Hospitalist; Internal Medicine; Obstetrics & Gynecology; Specialist; Surgery
DX: E11.10 Type 2 diabetes mellitus with ketoacidosis without coma (principal); N17.9 Acute kidney failure, unspecified; Z79.4 Long term (current) use of insulin; T38.3X6A Underdosing of insulin and oral hypoglycemic [antidiabetic] drugs, initial encounter; Z91.120 Patient's intentional underdosing of medication regimen due to financial hardship; F32.9 Major depressive disorder, single episode, unspecified; F41.9 Anxiety disorder, unspecified; Z83.3 Family history of diabetes mellitus; F17.200 Nicotine dependence, unspecified, uncomplicated; E86.0 Dehydration
CPT/HCPCS: 36600; 71045; 80048; 80048 91; 80053; 81003; 82010; 82948; 83036; 83605; 83690; 84100; 85025; 85027; 87641; 99281; 99285; J1644; J1815; J2405; J3480; J7030; J7050